=== PATIENT | male | born 1955 | race Caucasian/White ===

== ENCOUNTER 2018-03-26 07:39 | Outpatient (CLI) | payer MEDICARE ==
--- NOTE | 2018-03-26 10:01 | CT ---
CT PULMONARY LUNG SCAN: INDICATIONS: COPD. Smoker for 50+ years, quit one year ago. History of stroke. COMPARISON: CTA chest dated 02/05/2011. FINDINGS: There is a subpleural, sub-4 mm pulmonary nodule within the left upper lobe, adjacent to the left angela or fissure, which is stable. There is a small, sub-4 mm pulmonary nodule in the right upper lobe, on image 37 of series 2, which is stable. There are calcified granuloma in the right lower lobe, which is stable. There is scattered emphysema. There are coronary artery and thoracic aortic calcificati ons. The visualized upper abdomen reveals no definite acute abnormality. IMPRESSION: 1. Lung-RADS category 2-Benign. Recommend low dose lung cancer screening CT in one year. 2. Moderate emphysema. 3. Findings of prior granulomatous disease. The pulmonary nodules within both upper lobes have been stable since 2010 and are benign. 4. Coronary artery and thoracic aortic calcifications. 5. Moderate multilevel thoracic spondylosis. POS: [facility]
--- NOTE | 2018-03-26 10:23 | ULT ---
ABDOMINAL AORTA ULTRASOUND: HISTORY: Screening for abdominal aortic aneurysm. FINDINGS: The abdominal aorta measures 1.7 cm in maximum AP dimension. The common iliac arteries are of normal caliber as well. IMPRESSION: No evidence of abdominal aortic aneurysm. POS: [facility]
== END 2018-03-26 07:40 | disposition home or self-care (01) ==
LOC: ULT 07:39
PROVIDERS: ATTEND Family Medicine
DX: Z87.891 Personal history of nicotine dependence (principal); Z13.6 Encounter for screening for cardiovascular disorders; J43.9 Emphysema, unspecified; I25.10 Atherosclerotic heart disease of native coronary artery without angina pectoris; I70.0 Atherosclerosis of aorta; M47.814 Spondylosis without myelopathy or radiculopathy, thoracic region; R91.8 Other nonspecific abnormal finding of lung field; J84.10 Pulmonary fibrosis, unspecified
CPT/HCPCS: 76775; G0297

== ENCOUNTER 2018-04-22 07:47 | Outpatient (CLI) | payer MEDICARE ==
--- NOTE | 2018-04-22 09:47 | ULT ---
HEPATIC DOPPLER ULTRASOUND: DATE: 04/22/2018. COMPARISON: None. HISTORY: Hepatitis C. TECHNIQUE: Multiplanar, rodgers scale sonographic imaging of the upper abdomen obtained. The hepatic and splenic v asculature is assessed with color flow and spectral analysis. FINDINGS: The imaged pancreas appears grossly unremarkable. Inferior vena cava is patent and demonstrates a normal venous waveform. There is a vague hyperechoic lesion within the right lobe of the liver measuring 1.5 x 1.2 x 1.0 cm. Main portal vein is patent and demonstrates hepatopetal flow as does the right and left portal vein. Hepatic artery, middle hepatic vein, right hepatic vein, and left hepatic vein and demonstrate appro priate waveforms. No gallbladder wall thickening or pericholecystic fluid. No gallstones are noted. Common bile duct could not be visualized on this examination. The spleen measures 9.5 cm in greatest dimension, within normal limits. No free fluid seen in the up per abdomen. Splenic artery and vein are patent and demonstrate appropriate arterial and venous wave forms respectively. IMPRESSION: 1. Hyperechoic lesion within the right lobe of the liver, nonspecific. Further assessment via CT or MRI with and without contrast using hepatic mass protocol advised. 2. Patent hepatic and splenic vasculature. CODE T POS: [facility]
== END 2018-04-22 07:48 | disposition home or self-care (01) ==
LOC: BICULT 07:47
PROVIDERS: ATTEND Internal Medicine Gastroenterology
DX: B18.2 Chronic viral hepatitis C (principal); K52.9 Noninfective gastroenteritis and colitis, unspecified; K76.89 Other specified diseases of liver
CPT/HCPCS: 76705

== ENCOUNTER 2018-05-08 08:15 | Outpatient (CLI) | payer MEDICARE ==
--- NOTE | 2018-05-08 11:45 | CT ---
CT ABDOMEN NONCONTRAST CT ARTERIOGRAM AND PORTAL VEIN PHASE ABDOMEN WITH 3D VOLUME RENDERING: Date: 05/08/18 INDICATION: Hepatic lesion, follow-up. Reference is made to ultrasound exam dated 04/22/18. FINDINGS: There is a small hypodensity, only visualized on the portal vein phase, which involves posterior segm ent right hepatic lobe. Finding measures 11-12 mm in diameter and there is subtle hyperdense nodulari ty at the periphery which could relate to peripheral discontinuous nodular enhancement as can be seen with a cavernous hemangioma, although the finding is too small to definitively characterize. There i s prominent nodularity of the morphology of each kidney with areas of volume loss and absent enhancem ent suggestive of multiple areas of renal parenchymal scar, likely chronic. Multiple calcifications o f each kidney are vascular in distribution. There is no hydronephrosis. Adrenal glands are unremarkab le. No splenic mass or peripancreatic inflammation. Bowel is incompletely assessed without the presen ce of enteric contrast. The imaged lung bases reveal mild volume loss and/or scarring. There is coron al artery calcification and diffuse vascular disease present. Diffuse osseous degenerative change is present. IMPRESSION: Small, hypoattenuating focus, with the possibility of a faint degree of peripheral nodular discontinu ous enhancement, which may therefore relate to a small cavernous hemangioma involving posterior segme nt right hepatic lobe. As the finding is too small to definitively characterize, as a conservative me asure, 3-4 month follow-up CT exam is recommended to confirm size stability. POS: [facility]
== END 2018-05-08 08:16 | disposition home or self-care (01) ==
LOC: CT 08:15
PROVIDERS: ATTEND Internal Medicine Gastroenterology
DX: R93.2 Abnormal findings on diagnostic imaging of liver and biliary tract (principal)
CPT/HCPCS: 74175; 82565

== ENCOUNTER 2018-08-13 19:30 | Outpatient (CLI) | payer MEDICARE | END 2018-08-13 19:31 | disposition home or self-care (01) | LOC: SLEEPLAB 19:30 | PROVIDERS: ATTEND Family Medicine | DX: R06.89 Other abnormalities of breathing (principal); G47.00 Insomnia, unspecified; R35.1 Nocturia; J44.9 Chronic obstructive pulmonary disease, unspecified; I10 Essential (primary) hypertension; I63.9 Cerebral infarction, unspecified; G47.33 Obstructive sleep apnea (adult) (pediatric); G47.31 Primary central sleep apnea | CPT/HCPCS: 95810 ==

== ENCOUNTER 2018-09-03 07:28 | Outpatient (CLI) | payer MEDICARE ==
--- NOTE | 2018-09-03 09:59 | CT ---
CT ABDOMEN WITH AND WITHOUT IV CONTRAST: HISTORY: Hepatis C, constipation, abnormal liver imaging. FINDINGS: Comparison is made with the exam of 05/08/2018. Correlation is made with hepatic ultrasound of 04/22. The 12 mm hypodensity in the right posterior segment of the right lobe of the liver is best seen on t he portal venous phase and is not visualized on the delayed images. This is stable in size and imagi ng characteristics and likely represents a hemangioma. No other liver masses or abnormal biliary saul patt dilatation are identified. The spleen, pancreas, and adrenal glands are normal. Scarring in the kidneys is again seen. No calcified gallstones are identified. No free air, free fluid, or lymphad enopathy is seen. There are vascular calcifications without evidence of aneurysmal dilatation of the abdominal aorta. There are degenerative changes in the spine. The lung bases are clear. IMPRESSION: Stable right liver lobe lesion, likely hemangioma. Confirmation with Tc99m labeled RBC scan would be helpful. POS: [facility]
[2018-09-03] MEDS ORDERED: ISOVUE-370 76%-LOCM 1 ML ONE (10:25)
== END 2018-09-03 07:29 | disposition home or self-care (01) ==
LOC: BICCT 07:28
PROVIDERS: ATTEND Physician Assistant Medical
DX: B18.2 Chronic viral hepatitis C (principal); K59.00 Constipation, unspecified; R93.2 Abnormal findings on diagnostic imaging of liver and biliary tract; K76.9 Liver disease, unspecified
CPT/HCPCS: 74170; 82565

== ENCOUNTER 2020-02-15 16:09 | Inpatient (IN) | payer OTHER, MEDICARE ==
[~2020-02-15 16:09] MED LIST: Iopamidol 370 76% 100 ML VIAL ONE
[2020-02-15 17:02] LABS: #Eosinphils 0.1 thou/uL (0.0-0.7); #Lymphocytes 1.7 thou/uL (1.20-3.40); #Monocytes 0.6 thou/uL (0.11-0.59); %Basophils 0.7 % (0.0-1.0); %Eosinophils 1.5 % (0.0-10.0); %Lymphocytes 26.3 % (21.0-51.0); %Monocytes 9.3 % (0.0-10.0); %Neutrophils 62.2 % (42.0-75.0); Hemoglobin 14.1 g/dL (14.0-18.0); Mean Corpuscular HGB CONC 35.2 g/dL (32.0-36.0); Mean Corpuscular Hemoglobin 35.2 pg (27.0-31.0); Mean Platelet Volume 7.2 fL (7.4-10.4); Platelet Count 240 thou/uL (130-400); RBC Distribution Width 11.8 % (11.5-14.5); Red Blood Cell (RBC) Count 3.99 mill/uL (4.70-6.10); White Blood Cell (WBC) Count 6.4 thou/uL (4.8-10.8)
--- NOTE | 2020-02-15 17:14 | RAD ---
PORTABLE CHEST: Indications: Syncope Comparison: Two view chest, 06-05-2019 FINDINGS: Lung appear clear. There is stranding in the left lung base which was present on the prior exam. No i nfiltrate or vascular congestion. Heart and mediastinum unremarkable. IMPRESSION: No acute process identified. Stranding in the left lung base was present on the prior exam of 06-05-19 and is poorly evaluated on this portable projection. POS: [facility]
[2020-02-15 17:21] LABS: Anion Gap 18 mmol/L (10-20); BUN (Urea Nitrogen) 8 mg/dL (8.4-25.7); Calc. Creatinine Clearance 0 mL/min (70-130); Carbon Dioxide 18 mmol/L (23-31); Chloride 101 mmol/L (98-107); Estimated GFR-MDRD 79; Potassium 4.5 mmol/L (3.5-5.1); Sodium 132 mmol/L (136-145)
[2020-02-15 17:22] LABS: ALT (SGPT) 12 U/L (8-55); AST (SGOT) 21 U/L (5-34); Albumin 3.8 g/dL (3.4-4.8); Alkaline Phosphatase 86 U/L (40-110); Bilirubin, Total 0.7 mg/dL (0.2-1.2); Calcium 8.2 mg/dL (7.8-10.44); Globulin 2.7 g/dL (2.4-3.5); Glucose 84 mg/dL (80-115); Protein, Total 6.5 g/dL (5.8-8.1)
--- NOTE | 2020-02-15 18:01 | CT ---
CT HEAD WITHOUT CONTRAST: Indications: Syncope. Comparison: 07-24-13 FINDINGS: Ventricles are upper normal in size but are stable from 2014. There is no evidence of intracranial ma ss or hemorrhage. No infarct. Paranasal sinuses are clear. IMPRESSION: 1. Borderline ventriculomegaly which is stable from the prior exam. No acute process or significant i nterval change. POS: [facility]
[2020-02-15 18:34] LABS: Bilirubin Negative (Negative); Blood, Urine Negative (Negative); Clarity Clear (Clear); Glucose, Urine (Dipstick) Normal (Negative); Ketone, Urine Negative (Negative); Leukocyte Negative Leu/uL (Negative); Nitrite Negative (Negative); Protein, Urine (Dipstick) Negative (Neg-Trace); Specific Gravity, Urine 1.004 (1.002-1.036); Urobilinogen Normal mg/dL (Less than 2); pH, Urine 5.5 (5.0-9.0)
--- NOTE | 2020-02-15 20:28 | CT ---
CT ANGIO CHEST PERFORMED WITH INTRAVEOUS CONTRAST ENHANCEMENT WITH 3D RECONSTRUCTIONS: History: Syncope, increasing shortness of breath FINDINGS: There are changes of central lobular emphysema. No focal infiltrative process is seen. There is some parenchymal change in the region of the lingula which may be related to scarring. No significant mediastinal, hilar or axillary adenopathy. The thoracic aorta is normal in caliber. There is good pulmonary artery opacification, no CT evidence for pulmonary embolus. Visualized liver parenchyma shows no focal findings. Right and left adrenal glands are normal. IMPRESSION: No CT evidence for pulmonary embolus. POS: [facility]
--- NOTE | 2020-02-15 20:30 | PDOC.FPRHP ---
- History of Present Illness Chief Complaint: syncope History of Present Illness: Pt is a 65yo M with a PMH of HTN, COPD, stroke x2, Hep C presents with chief complaint of syncope. Pt states 4 months ago he would "black out everyday", but he went to his PCP and they changed some medications which seemed to help. However, he has passed out 1x daily in the last 2 days with the most recent episode being earlier today. He states today he was getting up from his chair, went to the kitchen and before he could get to what he was going to do he blacked out. He states he thinks he hits hit head on the counter, but does not know how long he was down. He said before he passed out, he felt really shaky in his legs and felt very dizzy. With past episodes, he states it seems to just be associated with standing; with prolonged standing he gets shake, dizzy, and passes out. He denies associated CP, SOB, N/V, edema, fever, chills, current drug use, recent travel or sick contacts. His previous strokes were 3 and 5 years ago, respectively and he had right sided deficits that required him to learn to walk again, but denies any long lasting deficits from these strokes. ED Course: elevated Ddimer, f/u CTA neg CXR, UA, EKG, troponin, CT head neg - Allergies/Adverse Reactions Allergies Allergy/AdvReac Type Severity Reaction Status Date / Time No Known Drug Allergies Allergy Unverified 02/15/20 21:21 - Home Medications Medication Instructions Recorded Confirmed Type Amlodipine [Norvasc] 5 mg PO DAILY 02/15/20 02/15/20 History Atorvastatin Calcium [Lipitor] 40 mg PO DAILY 02/15/20 02/15/20 History Budesonide/Formoterol Fumarate 1 puff IH BID 02/15/20 02/15/20 History [Budesonide-Formoterol 160-4.5] Gabapentin 300 mg PO TID 02/15/20 02/15/20 History Ibuprofen [Motrin] 800 mg PO TID 02/15/20 02/15/20 History Melatonin 10 mg PO HS PRN 02/15/20 02/15/20 History Tamsulosin HCl [Flomax] 2 capsule PO DAILY 02/15/20 02/15/20 History traZODone HCl [Trazodone HCl] 50 mg PO HS PRN 02/15/20 02/15/20 History - History PMHx: COPD, HTN, Hep C, neuropathy, 2x stroke last in 2017 PSHx: b/l elbow surgery FHx: mom-parkinsons dad- brain aneurysm Social: past drug user IV and snort cocaine, last use 10 years ago daily alcohol use, 4 beers/day past smoker, 2ppd for 50 years, quit in 2017 - Review of Systems General: denies: fever/chills, weight/appetite/sleep changes Eyes: denies: vision changes Respiratory: reports: shortness of breath (pt has hx of COPD). denies: cough Cardiovascular: denies: chest pain, palpitation, edema Gastrointestinal: denies: nausea, vomiting, diarrhea, abdominal pain Genitourinary: denies: dysuria Skin: denies: rashes Neurological: reports: numbness (hx of b/l glove pattern neuropathy), syncope. denies: seizure - Vital signs BP: 140/91 HR: 72 RR: 20 Tmax: 98.5 Pox: 94% on RA Wt: 72.6kg - Physical Exam Constitutional: NAD, awake, alert and oriented HEENT: normocephalic and atraumatic, PERRLA, EOMI, conjunctiva clear, grossly normal vision Neck: supple, trachea midline Chest: no-tender to palpation Heart: RRR, normal S1/S2 (distant heart sounds) Lungs: CTAB, no respiratory distress, good air movement Abdomen: soft, non-tender, bowel sounds present Musculoskeletal: normal structure, normal tone, ROM grossly normal Neurological: no focal deficit, CN II-XII intact -Neurological: b/l glove like pattern of neuropathy in UEs Skin: no rash/lesions, good turgor Psychiatric: normal mood and affect, good judgment and insight FMR H&P: Results - Labs Result Diagrams: 02/15/20 16:41 02/15/20 16:41 Lab results: WBC 6.4 thou/uL (4.8-10.8) 02/15/20 16:41 Hgb 14.1 g/dL (14.0-18.0) 02/15/20 16:41 Hct 40.0 % (42.0-52.0) L 02/15/20 16:41 MCV 100.0 fL (78.0-98.0) H 02/15/20 16:41 Plt Count 240 thou/uL (130-400) 02/15/20 16:41 Neutrophils % 62.2 % (42.0-75.0) 02/15/20 16:41 Sodium 132 mmol/L (136-145) L 02/15/20 16:41 Potassium 4.5 mmol/L (3.5-5.1) 02/15/20 16:41 Chloride 101 mmol/L (98-107) 02/15/20 16:41 Carbon Dioxide 18 mmol/L (23-31) L 02/15/20 16:41 BUN 8 mg/dL (8.4-25.7) L 02/15/20 16:41 Creatinine 0.95 mg/dL (0.7-1.3) 02/15/20 16:41 Glucose 84 mg/dL (80-115) 02/15/20 16:41 Calcium 8.2 mg/dL (7.8-10.44) 02/15/20 16:41 Total Bilirubin 0.7 mg/dL (0.2-1.2) 02/15/20 16:41 AST 21 U/L (5-34) 02/15/20 16:41 ALT 12 U/L (8-55) 02/15/20 16:41 Alkaline Phosphatase 86 U/L (40-110) 02/15/20 16:41 Serum Total Protein 6.5 g/dL (5.8-8.1) 02/15/20 16:41 Albumin 3.8 g/dL (3.4-4.8) 02/15/20 16:41 Urine Ketones Negative mg/dL (Negative) 02/15/20 18:14 Urine Blood Negative (Negative) 02/15/20 18:14 Urine Nitrite Negative (Negative) 02/15/20 18:14 Ur Leukocyte Esterase Negative Hemanth/uL (Negative) 02/15/20 18:14 - EKG Interpretation EKG: normal sinus rhythm, no evidence of ischemia FMR H&P: A/P - Plan 1. Syncope -past hx of stroke x2, last in 2017 -CXR, UA, EKG, troponin, CT head all negative in ED -follow up echo, MRI, orthostatic vitals -consider CTA neck -PT/OT/rehab assessment ordered 2. COPD -aware, continue home meds -PRN DuoNebs -O2 sats >90% 3. HTN -aware, continue home meds -hold Propanolol 4.Hep C -aware, treated in the past 5.Neuropathy -aware, continue home meds 6. Elevated D dimer -CTA negative 7. Hyponatremia -likely 2/2 history of daily alcohol use -MCV 100 -follow up folate and B12, urine studies 8. BPH -aware, hold Tamsulosin 9. History of alcohol use -elevated MPV, daily alcohol use -ASE protocol intitiated DISPO: admit to tele obs, anticipated LOS <48 hours Code: FULL Fluids: KVO Diet: HH DVT ppx: Lovenox FMR H&P: Upper Level - Plan Date/Time: 02/15/202029 IDonnie DO, have evaluated this patient and agree with findings/plan as outlined by phd internship resident. Pertinent changes/additions are listed here. 65 yo m w/ pmhx sig for severe COPD, posterior CVA, and alcohol use He reports that he has had dysequilibrium since his cva 2 years ago. He reports that additionally he has had episodes of what he describes as shaky legs and then falling to the ground with LOC. He denies any CP, dyspnea, or palpitations preceding these episodes. He reports they have been happening daily for the past 3 days. The were also bad 4mos ago before his pcp changed his meds, after which they improved. He reports consuming 4 beers a day. PE significant for mild motor agitation, horizontal nystagmus of R eye which he reports is residual from stroke, and significant skin pock prado diffusely present. his strength and sensation are normal. VSS, EKG wnl in ED. labs sig for hyponatremia, macrocytosis, and elevated DDimer, CTA chest wnl. CXR neg for acute abnormality. Primary concern would be syncope 2/2 cva vs cardiac vs orthostasis for which we have MRI, orthostatics, echo pending. Tele monitoring. consider CTA neck in AM. Additionally we suspect alcohol abuse which could be contributing to symptomatology and lab findings, further workup pending, ASE protocol initiated. Medications could be contributing as well, hold BB and tamsulosin. He has severe COPD which will require cont. O2 monitoring, duonebs prn. Regardless of etiology pt could benefit from strengthening at snf vs rehab. Admit to stroke obs for ELOS<48hrs. Addendum - Attending - Attending Attestation Date/Time: 02/16/20 005 I personally evaluated the patient and discussed the management with Dr. Lopez. I agree with the History, Examination, Assessment and Plan documented above with any addition or exceptions noted below. Etiology of syncope is unclear. Because it is unwitnessed, and occurring multiple times which is unusual. Neuro, cardiac, and iatrogenic causes to be considered,mabel with alcohol and drug etiology.
[2020-02-15] MEDS ORDERED: Albuterol 200 PUFF (6.7GM INHALER) ONE (20:56)
[2020-02-15] MEDS ORDERED: Guaifenesin DM 100-10/5 ML UDCUP PO PRN (21:14)
[2020-02-15] MEDS ORDERED: Acetaminophen 325 MG TAB PO PRN (21:14)
[2020-02-15] MEDS ORDERED: Ondansetron ODT 4 MG TAB PO PRN (21:14)
[2020-02-15] MEDS ORDERED: Ondansetron PF 4 MG/2 ML Vial IVP PRN (21:14)
[2020-02-15 21:22] LABS: Troponin I Less than 0.010 ng/mL (< 0.028)
[2020-02-15 22:36] VITALS: BMI 23.7
[2020-02-15] MEDS ORDERED: Lactated Ringer's 1,000 ML IV SCH (23:00)
[2020-02-15 23:41] LABS: Troponin I Less than 0.010 ng/mL (< 0.028)
[2020-02-15] MEDS ORDERED: traZODone HCl 50 MG TAB PO PRN (23:42)
[2020-02-15] MEDS ORDERED: Fluticasone Propionate Nasal Spray 16 gm Bottle NASAL SCH (23:59)
[2020-02-16] MEDS: Melatonin 3 MG TAB PO PRN ×2 (00:16→21:34)
[2020-02-16] MEDS ORDERED: guaiFENesin ER 600 MG TAB PO SCH (03:30)
[2020-02-16 05:06] LABS: #Basophils 0.1 thou/uL (0.0-0.2); #Eosinphils 0.1 thou/uL (0.0-0.7); #Lymphocytes 1.6 thou/uL (1.20-3.40); #Monocytes 0.7 thou/uL (0.11-0.59); #Neutrophils 4.5 thou/uL (1.40-6.50); %Lymphocytes 23.3 % (21.0-51.0); %Monocytes 9.8 % (0.0-10.0); %Neutrophils 63.9 % (42.0-75.0); Hemoglobin 14.3 g/dL (14.0-18.0); Mean Corpuscular HGB CONC 34.2 g/dL (32.0-36.0); Mean Corpuscular Hemoglobin 34.2 pg (27.0-31.0); Mean Platelet Volume 6.9 fL (7.4-10.4); Platelet Count 231 thou/uL (130-400); Red Blood Cell (RBC) Count 4.18 mill/uL (4.70-6.10)
[2020-02-16 05:30] LABS: ALT (SGPT) 11 U/L (8-55); AST (SGOT) 14 U/L (5-34); Albumin 3.7 g/dL (3.4-4.8); Alkaline Phosphatase 85 U/L (40-110); Anion Gap 11 mmol/L (10-20); BUN (Urea Nitrogen) 7 mg/dL (8.4-25.7); Bilirubin, Total 0.7 mg/dL (0.2-1.2); Calc. Creatinine Clearance 89 mL/min (70-130); Calcium 8.6 mg/dL (7.8-10.44); Carbon Dioxide 22 mmol/L (23-31); Cardiac Risk 2.5 (Less than 4.5); Chloride 106 mmol/L (98-107); Cholesterol 113 mg/dl (< 200 Desired); Estimated GFR-MDRD Greater than 90; Globulin 2.4 g/dL (2.4-3.5); Glucose 87 mg/dL (80-115); HDL Cholesterol 45 mg/dL (>60 Neg Risk); LDL Cholesterol, Calculated 53 mg/dL; Potassium 3.8 mmol/L (3.5-5.1); Protein, Total 6.1 g/dL (5.8-8.1); Sodium 135 mmol/L (136-145); Triglycerides 74 mg/dL (Less than 150)
--- NOTE | 2020-02-16 05:56 | PDOC.FM ---
- Subjective Subjective: No acute overnight events. Reports he is dizzy and has been dizzy for 3 years. He is also tremulous but states this is his baseline level of tremor. No abd pain, n/v, diarrhea, constipation. - Objective Vital Signs & Weight: Vital Signs (12 hours) Temp Pulse Resp BP BP BP BP 02/16/20 04:03 97.4 F L 72 18 129/73 02/16/20 04:00 97.4 F L 72 18 129/73 02/15/20 23:48 97.4 F L 71 16 138/80 02/15/20 23:18 97.3 F L 71 18 156/83 H 02/15/20 22:32 139/82 116/75 02/15/20 21:38 97.3 F L 71 18 156/83 H BP Pulse Ox 02/16/20 04:03 93 L 02/16/20 04:00 93 L 02/15/20 23:48 93 L 02/15/20 23:18 96 02/15/20 22:32 148/88 H 02/15/20 21:38 96 Weight Weight 70.874 kg Result Diagrams: 02/16/20 04:42 02/16/20 04:42 Phys Exam - Physical Examination Constitutional: NAD HEENT: moist MMs upper dentures in place Respiratory: clear to auscultation bilateral Cardiovascular: RRR distant heart sounds Gastrointestinal: soft, positive bowel sounds mild RUQ tenderness Musculoskeletal: no edema Neurological: non-focal, moves all 4 limbs bilateral hand tremors Psychiatric: normal affect, A&O x 3 Skin: no rash Deviation from normal: diffuse pock prado Dx/Plan - Plan Plan: 1. Syncope -past hx of stroke x2, last in 2017 -CXR, UA, EKG, troponin, CT head all negative in ED -follow up echo, MRI, orthostatic vitals -consider CTA neck -PT/OT/rehab assessment ordered -positive orthostatics on admission, repeat s/p fluid resuscitation 2. COPD -aware, continue home meds -PRN DuoNebs -O2 sats >90% 3. HTN -aware, continue home meds -hold Propanolol 4.Hep C -aware, treated in the past 5.Neuropathy -aware, continue home meds 6. Elevated D dimer -CTA negative 7. Hyponatremia -likely 2/2 history of daily alcohol use -MCV 100 -follow up folate and B12, urine studies 8. BPH -aware, hold Tamsulosin 9. History of alcohol use -elevated MPV, daily alcohol use -ASE protocol intitiated DISPO: admit to tele obs, anticipated LOS <48 hours Code: FULL Fluids: KVO Diet: HH DVT ppx: Lovenox Addendum - Attending - Attending Attestation Date/Time: 02/16/20 1100 I personally evaluated the patient and discussed the management with Dr. Mcnair. I agree with the History, Examination, Assessment and Plan documented above with any addition or exceptions noted below.
--- NOTE | 2020-02-16 08:54 | MRI ---
MRI BRAIN WITHOUT CONTRAST: HISTORY: TIA CORRELATION: CT scan from 02/15/2020, 07/24/2013. FINDINGS: No restricted diffusion is seen. There are foci of T2 prolongation in the periventricular white matte r, consistent with chronic small vessel ischemic disease. The ventricular size is prominent but stable since CT scan of 07/24/2013. The basilar cisterns are patent. There are changes of cortical atr ophy. No evidence of acute infarct, hemorrhage, midline shift or abnormal extra-axial fluid collections is seen. There is mild mucosal disease in the paranasal sinuses. IMPRESSION: No evidence of acute intracranial process.
[2020-02-16] MEDS ORDERED: FLU VACC QS2020-21(65YR UP)/PF 240 MCG/0.7 ML SYRINGE IM ONE (09:00)
[2020-02-16] MEDS: guaiFENesin ER 600 MG TAB PO SCH ×2 (09:01→21:35)
[2020-02-16] MEDS: Atorvastatin Calcium 40 MG TAB PO SCH (09:01)
[2020-02-16] MEDS: Amlodipine 5 MG TAB PO SCH (09:01)
[2020-02-16] MEDS: Enoxaparin Sodium 40 MG/0.4 ML SYRINGE SC SCH (09:10)
[2020-02-16] MEDS: Fluticasone Propionate Nasal Spray 16 gm Bottle NASAL SCH (09:11)
[2020-02-16] MEDS: Folic Acid 1 MG TAB PO SCH (09:11)
[2020-02-16] MEDS: Ibuprofen 800 MG TAB PO SCH ×3 (09:12→21:35)
[2020-02-16] MEDS: Gabapentin 300 MG CAP PO SCH ×2 (09:12→17:05)
[2020-02-16] MEDS ORDERED: Lactated Ringer's 1,000 ML IV SCH (11:00)
[2020-02-16 14:02] LABS: SARS-CoV-2 MS2 Positive; SARS-CoV-2 N Gene Negative; SARS-CoV-2 S Gene Negative; SARS-CoV-2 by NAA Not Detected (NotDetected); SARS-CoV-2 orf1ab Negative
[2020-02-16] MEDS ORDERED: Meclizine HCl 25 MG TAB PO SCH (15:30)
[2020-02-16] MEDS: Mometasone 200 MCG/Formoterol 5 MCG 120 PUFF INHALER INH SCH (18:25)
[2020-02-16] MEDS ORDERED: Non-Formulary Item 1 EACH (Budesonide-Formoterol [Symbicort 160-4.5] 160 MG/4.5 MG Aer) INH SCH (21:00)
--- NOTE | 2020-02-17 06:01 | PDOC.FM ---
- Subjective Subjective: No acute overnight event. Given meclizine yesterday afternoon, reports it improved his symptoms. Reports he slept well overnight, no new complaints this morning. He is "not awake enough yet" to know if he is dizzy today although he denies dizziness during his exam this AM. He denies chest pain, SOB, abd pain. Reports he is on gabapentin for bilateral UE neuropathy from the elbows through the hands. Had eval with nerve studies at onset of symptoms, etiology unknown per patient. Hx of - Objective Vital Signs & Weight: Vital Signs (12 hours) Temp Pulse Resp BP Pulse Ox 02/17/20 04:30 98.3 F 66 19 109/68 92 L 02/17/20 00:50 97.9 F 68 17 100/63 93 L 02/16/20 20:19 97.3 F L 80 19 114/79 96 02/16/20 18:25 12 Weight Admit Weight 70.874 kg Weight 70.874 kg I&O: 02/15/20 02/16/20 02/17/20 06:59 06:59 06:59 Intake Total 1180 1240 Output Total 1999 1400 Balance -820 -160 Result Diagrams: 02/16/20 04:42 02/16/20 04:42 Phys Exam - Physical Examination Constitutional: NAD HEENT: moist MMs, sclera anicteric Respiratory: clear to auscultation bilateral Cardiovascular: RRR, no significant murmur distant heart sounds Gastrointestinal: soft, non-tender, no distention, positive bowel sounds Musculoskeletal: no edema, pulses present Neurological: non-focal, moves all 4 limbs Psychiatric: normal affect, A&O x 3 Skin: no rash Deviation from normal: diffuse pock markings on extermities Dx/Plan - Plan Plan: Syncope -past hx of stroke x2, last in 2017 -CXR, UA, EKG, troponin, CT head all negative in ED -echo, MRI negative -intial orthostatic vitals positive, negative after fluid resuscitation -PT/OT/rehab assessment ordered -Suspect symptoms likely due to a combination of reflex mediated syncope, orthostatic hypotension, and BPPV. BPPV Positive amandeep-hallpike exam yesterday afternoon. Some improvement with 25 mg meclizine. - continue meclizine PRN COPD -aware, continue home meds -PRN DuoNebs -O2 sats >90% HTN -aware, continue home meds -hold Propanolol Hep C -aware, treated in the past Neuropathy -holding gabapentin in setting of increased dizziness Elevated D dimer -CTA negative Hyponatremia, improving -likely 2/2 history of daily alcohol use BPH -aware, hold Tamsulosin History of alcohol use -elevated MCV, daily alcohol use -ASE protocol intitiated DISPO: likely discharge to home later today Code: FULL Fluids: KVO Diet: HH DVT ppx: Lovenox Addendum - Attending - Attending Attestation Date/Time: 02/17/20 0279 I personally evaluated the patient and discussed the management with Dr. Mcnair. I agree with the History, Examination, Assessment and Plan documented above with any addition or exceptions noted below. Patient feels well. Suspect Orthostasis and BPPV as his cause of vertigo. Improved with meclizine. Stable for discharge.
[2020-02-17] MEDS: Mometasone 200 MCG/Formoterol 5 MCG 120 PUFF INHALER INH SCH (06:32)
[2020-02-17] MEDS: guaiFENesin ER 600 MG TAB PO SCH (10:19)
[2020-02-17] MEDS: Amlodipine 5 MG TAB PO SCH (10:19)
[2020-02-17] MEDS: Ibuprofen 800 MG TAB PO SCH ×2 (10:19→15:20)
[2020-02-17] MEDS: Atorvastatin Calcium 40 MG TAB PO SCH (10:19)
[2020-02-17] MEDS: Enoxaparin Sodium 40 MG/0.4 ML SYRINGE SC SCH (10:20)
[2020-02-17] MEDS: Folic Acid 1 MG TAB PO SCH (10:20)
[2020-02-17] MEDS: Fluticasone Propionate Nasal Spray 16 gm Bottle NASAL SCH (10:21)
[2020-02-17 11:43] VITALS: TEMP 98.1
[2020-02-17 12:28] VITALS: BP 137/88
--- NOTE | 2020-02-18 13:59 | DIS ---
DATE OF ADMISSION: 02/17/2020 DATE OF DISCHARGE: 02/17/2020 RESIDENT: Lucero Mcnair DO ADMITTING ATTENDING: Dr. Oconnell. DISCHARGE ATTENDING: Dr. Julio. CONSULTS: None. PROCEDURES: chest and thorax, MRI of brain, echocardiogram. PRIMARY DIAGNOSIS: Orthostatic hypotension. SECONDARY DIAGNOSES: Benign positional vertigo, chronic obstructive pulmonary disease, hypertension, hepatitis C status post treatment, neuropathy, hyponatremia, improved. History of alcohol use, history of strokes. DISCHARGE MEDICATIONS: 1. Melatonin 10 mg p.o. at bedtime p.r.n. 2. Ibuprofen 800 mg p.o. t.i.d. p.r.n. 3. Tamsulosin 0.4 mg p.o. daily. 4. Atorvastatin 40 mg p.o. daily. 5. Amlodipine 5 mg p.o. daily. 6. Symbicort 160/4.5 one puff b.i.d. DISCONTINUED MEDICATIONS: 1. Trazodone 50 mg p.o. at bedtime p.r.n. 2. Gabapentin 300 mg p.o. t.i.d. HISTORY OF PRESENT ILLNESS AND HOSPITAL COURSE: Mr. Clark is a 65-year-old male with a past medical history of hypertension, COPD, and 2 strokes in the past, who presented with a chief complaint of syncope. On admission, he reported that several months ago he was having episodes of blacking out every day but his PCP switched his home medications, which seemed to help. His current episode is described as getting up from his chair, going to his kitchen and then lowering himself to the floor as he felt he was going to pass out. He did feel shaky and dizzy before this syncopal episode. He is also reporting a history of being generally dizzy for the past three years. He denies any associated chest pain, shortness of breath, nausea, vomiting, edema, fever, chills, current drug use, recent travel, or sick contacts. He previously had right-sided deficits due to one of his strokes, which has improved after therapy. Denies any long-lasting stroke deficits. He was admitted for workup of his syncope including ruling out a stroke. He had multiple imaging studies done, all of which were negative for any acute process. He also had an echocardiogram, which revealed an ejection fraction of 55% to 60% and was otherwise normal. He was monitored on telemetry throughout his admission and no events were noted on telemetry that would be suspicious for triggering syncope. On second day of admission, a Marlin-Hallpike exam was performed, which was positive. Meclizine was given, which improved his symptoms overnight. We also held his trazodone and gabapentin, which seemed to improve his dizziness. On admission, orthostatic vital signs were performed, which were positive and improved after . The patient reports a history of drinking only Pepsi and beer at home. It is presumed that his symptoms are due to a combination of both orthostatic hypotension and benign positional vertigo. After treatment of both of these conditions, he was discharged to home in stable condition. He already has home health set up at home and declined going to a retirement or rehab facility to work on his physical conditioning. DISPOSITION: Stable. DISCHARGE INSTRUCTIONS: 1. Location: Home. 2. Diet: Heart healthy diet. 3. Activity: As tolerated. 4. Followup: Follow up with PCP, Dr. José at [facility] within the next one week. Job ID: [id number]
== END 2020-02-17 14:53 | disposition home or self-care (01) | DRG 312 ==
LOC: ERS 16:09 → 2SE 22:05 → OBSVTOIN 02-17 14:00
PROVIDERS: ADMIT Family Medicine; ATTEND Family Medicine
DX: I95.1 Orthostatic hypotension (principal); E87.1 Hypo-osmolality and hyponatremia; H81.10 Benign paroxysmal vertigo, unspecified ear; J44.9 Chronic obstructive pulmonary disease, unspecified; F41.9 Anxiety disorder, unspecified; I10 Essential (primary) hypertension; G62.9 Polyneuropathy, unspecified; B19.20 Unspecified viral hepatitis C without hepatic coma; N40.0 Benign prostatic hyperplasia without lower urinary tract symptoms; D75.89 Other specified diseases of blood and blood-forming organs; F10.10 Alcohol abuse, uncomplicated; Z79.899 Other long term (current) drug therapy; Z86.73 Personal history of transient ischemic attack (TIA), and cerebral infarction without residual deficits; Z20.828 Contact with and (suspected) exposure to other viral communicable diseases
CPT/HCPCS: 36415; 70450; 70551; 71045; 71275; 80053; 80061; 81003; 82607; 82746; 83935; 84300; 84484; 85025; 85379; 87635; 90471; 90662; 90732; 93005; 93306; 94664; 96360; 96361; 96372; G0008; G0009; G0378; J1650; Q9967; U0003

== ENCOUNTER 2020-11-12 09:04 | Outpatient (CLI) | payer MEDICARE ==
[2020-11-12 10:22] LABS: Hemoglobin 14.2 g/dL (13.5-17.5); Mean Corpuscular HGB CONC 33.8 g/dL (32.0-36.0); Mean Corpuscular Hemoglobin 33.1 pg (27.0-33.0); Mean Corpuscular Volume 97.9 fl (81.2-95.1); Mean Platelet Volume 9.9 fl (7.4-10.4); Platelet Count 256 10x3/uL (150-450); RBC Distribution Width 12.9 % (11.5-14.5); Red Blood Cell (RBC) Count 4.29 10x6/uL (4.32-5.72); White Blood Cell (WBC) Count 6.2 10x3/uL (3.5-10.5)
[2020-11-12 10:35] LABS: INR-International Normal Ratio 0.9; PTT 27.3 sec (22.0-33.0); Prothrombin Time 10.4 sec (9.5-12.1)
[2020-11-12 10:49] LABS: Anion Gap 16 mmol/L (10-20); BUN (Urea Nitrogen) 9 mg/dL (8.4-25.7); Calc. Creatinine Clearance 0 mL/min (70-130); Calcium 9.3 mg/dL (7.8-10.44); Carbon Dioxide 22 mmol/L (23-31); Chloride 103 mmol/L (98-107); Glucose 134 mg/dL (80-115); Potassium 4.6 mmol/L (3.5-5.1); Sodium 136 mmol/L (136-145)
[2020-11-12 12:59] LABS: Bilirubin Neg (Negative); Blood, Urine Negative (Negative); Clarity Clear (Clear); Glucose, Urine (Dipstick) Normal (Negative); Ketone, Urine Negative (Negative); Leukocyte 25 (Negative); Nitrite Negative (Negative); Protein, Urine (Dipstick) Negative (Neg-Trace); Urobilinogen Normal mg/dL (Less than 2); pH, Urine 6.5 (5.0-9.0)
[2020-11-12 13:19] LABS: Bacteria/HPF None Seen HPF (None Seen); RBC/HPF 0-3 HPF (0-3); Squamous Epithelial None Seen HPF (0-3); WBC/HPF 0-3 HPF (0-3)
== END 2020-11-12 09:05 | disposition home or self-care (01) ==
LOC: LABBT 09:04
PROVIDERS: ATTEND Urology
DX: Z01.818 Encounter for other preprocedural examination (principal); Z12.5 Encounter for screening for malignant neoplasm of prostate; N40.1 Benign prostatic hyperplasia with lower urinary tract symptoms; I95.1 Orthostatic hypotension; R35.0 Frequency of micturition; B19.20 Unspecified viral hepatitis C without hepatic coma; E87.1 Hypo-osmolality and hyponatremia; F10.11 Alcohol abuse, in remission; H81.10 Benign paroxysmal vertigo, unspecified ear; F14.11 Cocaine abuse, in remission; F19.11 Other psychoactive substance abuse, in remission; R33.9 Retention of urine, unspecified; Z87.891 Personal history of nicotine dependence; Z86.73 Personal history of transient ischemic attack (TIA), and cerebral infarction without residual deficits
CPT/HCPCS: 80048; 81001; 85027; 85610; 85730; 87077; 87086; 93005; G0103; 87186; 93010

== ENCOUNTER 2021-09-14 13:22 | Outpatient (CLI) | payer MEDICARE | END 2021-09-14 13:23 | disposition home or self-care (01) | LOC: MRI 13:22 | PROVIDERS: ATTEND Family Medicine | DX: G60.3 Idiopathic progressive neuropathy (principal); I95.1 Orthostatic hypotension; G25.2 Other specified forms of tremor; N39.42 Incontinence without sensory awareness; M48.02 Spinal stenosis, cervical region; M50.30 Other cervical disc degeneration, unspecified cervical region; M47.812 Spondylosis without myelopathy or radiculopathy, cervical region; G95.89 Other specified diseases of spinal cord | CPT/HCPCS: 72141 ==

== ENCOUNTER 2021-10-12 10:00 | Inpatient (IN) | payer MEDICARE ==
[2021-10-17] MEDS ORDERED: fentaNYL Citrate/PF 100 MCG/2 ML SYRINGE ONE (07:05)
[2021-10-17] MEDS ORDERED: HYDROmorphone 0.5 MG/0.5 ML SYRINGE ONE (07:05)
[2021-10-17] MEDS ORDERED: CEFAZOLIN 2 GM VIAL ONE (07:26)
[2021-10-17] MEDS ORDERED: Sodium Chloride 0.9% 100 ML ONE (07:26)
[2021-10-17] MEDS ORDERED: Ondansetron PF 4 MG/2 ML Vial ONE (07:37)
[2021-10-17] MEDS ORDERED: Rocuronium Bromide 10 MG/ML (10ML VIAL) ONE (07:37)
[2021-10-17] MEDS ORDERED: Glycopyrrolate 0.2 MG/ML 5 ML SYRINGE ONE (07:37)
[2021-10-17] MEDS ORDERED: Lidocaine 1% PF 5 ML VIAL ONE (07:37)
[2021-10-17] MEDS ORDERED: Ketorolac Tromethamine 30 MG/ML VIAL ONE (07:37)
[2021-10-17] MEDS ORDERED: PROPOFOL 200 MG/20 ML VIAL ONE (07:37)
[2021-10-17] MEDS ORDERED: ePHEDrine 50 MG/ML VIAL ONE (07:37)
[2021-10-17] MEDS ORDERED: Dexamethasone 20 MG/5 ML VIAL ONE (07:37)
[2021-10-17] MEDS ORDERED: HYDROmorphone 2 MG/ML VIAL SLOW IVP PRN (09:06)
[2021-10-17] MEDS ORDERED: PACU-Morphine 4MG/ML VIAL SLOW IVP PRN (09:06)
[2021-10-17] MEDS ORDERED: Promethazine HCl 25 MG/ML VIAL IVPB PRN (09:06)
[2021-10-17] MEDS ORDERED: Promethazine HCl 25 MG/ML VIAL IM PRN ×2 (09:06→11:15)
[2021-10-17] MEDS ORDERED: Ondansetron HCl/PF 4 MG/2 ML Vial IVP PRN (09:06)
[2021-10-17] MEDS ORDERED: Fentanyl 100 MCG/2 ML VIAL ONE ×3 (09:09→09:44)
[2021-10-17 10:31] VITALS: BMI 22.4
[2021-10-17] MEDS ORDERED: Albuterol 200 PUFF (6.7GM INHALER) INH PRN (11:04)
[2021-10-17] MEDS ORDERED: Melatonin 3 MG TAB PO PRN (11:10)
[2021-10-17] MEDS ORDERED: hydrOXYzine Pamoate 25 mg Capsule PO PRN (11:11)
[2021-10-17] MEDS ORDERED: Promethazine HCl 12.5 MG SUPP PR PRN (11:15)
[2021-10-17] MEDS ORDERED: Ondansetron PF 4 MG/2 ML Vial IVP PRN ×2 (11:15→11:55)
[2021-10-17] MEDS ORDERED: traMADol HCl 50 MG TAB PO PRN ×2 (11:15)
[2021-10-17] MEDS ORDERED: diphenhydrAMINE 25 MG CAP PO PRN (11:15)
[2021-10-17] MEDS ORDERED: Promethazine 25 MG TAB PO PRN (11:15)
[2021-10-17] MEDS ORDERED: diphenhydrAMINE 50 MG/ML VIAL IVP PRN (11:15)
[2021-10-17] MEDS ORDERED: Mag-Al 1200 mg/1200 mg/30 ML UDCUP PO PRN (11:15)
[2021-10-17] MEDS ORDERED: Cyclobenzaprine 10 MG TAB PO PRN (11:15)
[2021-10-17] MEDS ORDERED: Acetaminophen/Codeine 30-300mg Tablet PO PRN (11:15)
[2021-10-17] MEDS ORDERED: Morphine 2 MG/ML VIAL SLOW IVP PRN (11:15)
[2021-10-17] MEDS ORDERED: Non-Formulary Item 1 EACH (Hydroxyzine Pamoate [Hydroxyzine Pamoate] 50 MG Capsule) PO PRN (11:49)
[2021-10-17] MEDS ORDERED: Non-Formulary Item 1 EACH (Melatonin [Melatonin] 10 MG Tablet) PO PRN (11:49)
[2021-10-17] MEDS ORDERED: Non-Formulary Item 1 EACH (Ventolin Hfa Inhaler [Ventolin Hfa Inhaler] 60 PUFF Aer) INH PRN (11:49)
[2021-10-17] MEDS ORDERED: HYDROcodone/Acetaminophen 5/325 mg Tablet PO PRN (11:50)
[2021-10-17] MEDS ORDERED: Acetaminophen 325 MG TAB PO PRN (11:51)
[2021-10-17] MEDS: Sodium Chloride 0.9% 1,000 ML IV SCH (12:02)
[2021-10-17] MEDS ORDERED: ceFAZolin 2 GM/Dextrose 50 ML 2 GM in Premix Bag 1 BAG IVPB SCH (14:00)
[2021-10-17] MEDS: CEFAZOLIN 2 GM in Sodium Chloride 0.9% 100 ML IVPB SCH ×2 (14:22→21:42)
[2021-10-17] MEDS: Gabapentin 300 MG CAP PO SCH ×2 (14:23→21:40)
[2021-10-17] MEDS ORDERED: Gabapentin 300 MG CAP PO SCH (15:00)
[2021-10-17] MEDS: Morphine 4 MG/ML VIAL SLOW IVP PRN ×2 (16:32→19:59)
[2021-10-17] MEDS: Mometasone 200 MCG/Formoterol 5 MCG 120 PUFF INHALER INH SCH (18:43)
[2021-10-17] MEDS ORDERED: Ibuprofen 800 MG TAB PO SCH (21:00)
[2021-10-17] MEDS ORDERED: Non-Formulary Item 1 EACH (Budesonide-Formoterol [Symbicort 160-4.5] 160 MG/4.5 MG Aer) INH SCH (21:00)
[2021-10-17] MEDS ORDERED: Heparin 5,000 UNITS/ML VIAL SC SCH (21:00)
[2021-10-17] MEDS ORDERED: Atorvastatin Calcium 40 MG TAB PO SCH (21:00)
[2021-10-17] MEDS ORDERED: Tamsulosin HCl 0.4 MG CAP PO SCH ×2 (21:00)
[2021-10-17] MEDS ORDERED: TURMERIC 500 MG PO SCH (21:00)
[2021-10-17] MEDS ORDERED: traZODone HCl 50 MG TAB PO SCH (21:00)
[2021-10-17] MEDS ORDERED: Non-Formulary Item 1 EACH (Turmeric Root Extract [Turmeric] 500 MG Capsule) PO SCH (21:00)
[2021-10-17] MEDS: Atorvastatin Calcium 40 MG TAB PO SCH (21:39)
[2021-10-17] MEDS: Tamsulosin HCl 0.4 MG CAP PO SCH (21:40)
[2021-10-17] MEDS: Ibuprofen 800 MG TAB PO SCH (21:40)
[2021-10-17] MEDS: traZODone HCl 50 MG TAB PO SCH (21:41)
[2021-10-18] MEDS: Morphine 4 MG/ML VIAL SLOW IVP PRN ×7 (00:56→20:57)
[2021-10-18] MEDS: Sodium Chloride 0.9% 1,000 ML IV SCH ×3 (02:57→17:44)
[2021-10-18] MEDS: CEFAZOLIN 2 GM in Sodium Chloride 0.9% 100 ML IVPB SCH ×3 (05:53→20:54)
[2021-10-18] MEDS ORDERED: Tamsulosin HCl 0.4 MG CAP PO SCH (06:00)
[2021-10-18] MEDS: Dexamethasone 4 mg/ml Vial SLOW IVP SCH ×3 (06:37→17:43)
[2021-10-18 06:56] LABS: #Eosinphils 0.1 thou/uL (0.0-0.7); #Lymphocytes 1.5 thou/uL (1.20-3.40); #Neutrophils 5.7 thou/uL (1.40-6.50); %Basophils 0.2 % (0.0-1.0); %Eosinophils 0.7 % (0.0-10.0); %Lymphocytes 18.1 % (21.0-51.0); %Monocytes 12.1 % (0.0-10.0); Hemoglobin 13.4 g/dL (14.0-18.0); Mean Corpuscular HGB CONC 34.1 g/dL (32.0-36.0); Mean Corpuscular Hemoglobin 35.2 pg (27.0-31.0); Mean Platelet Volume 6.4 fL (7.4-10.4); Platelet Count 272 thou/uL (130-400); RBC Distribution Width 12.2 % (11.5-14.5); Red Blood Cell (RBC) Count 3.79 mill/uL (4.70-6.10); White Blood Cell (WBC) Count 8.3 thou/uL (4.8-10.8)
[2021-10-18] MEDS: Mometasone 200 MCG/Formoterol 5 MCG 120 PUFF INHALER INH SCH ×2 (07:08→18:16)
[2021-10-18 07:32] LABS: Anion Gap 13 mmol/L (10-20); BUN (Urea Nitrogen) 8 mg/dL (8.4-25.7); Calc. Creatinine Clearance 77 mL/min (70-130); Calcium 8.8 mg/dL (7.8-10.44); Carbon Dioxide 25 mmol/L (23-31); Chloride 102 mmol/L (98-107); Glucose 98 mg/dL (80-115); Potassium 4.1 mmol/L (3.5-5.1); Sodium 136 mmol/L (136-145)
[2021-10-18] MEDS ORDERED: Fludrocortisone Acetate 0.1 MG TAB PO SCH (09:00)
[2021-10-18] MEDS ORDERED: Primidone 50 MG TAB PO SCH (09:00)
[2021-10-18] MEDS: Fludrocortisone Acetate 0.1 MG TAB PO SCH (09:14)
[2021-10-18] MEDS: Gabapentin 300 MG CAP PO SCH ×3 (09:14→21:01)
[2021-10-18] MEDS: Primidone 50 MG TAB PO SCH (09:16)
[2021-10-18] MEDS: Ibuprofen 800 MG TAB PO SCH (21:01)
[2021-10-18] MEDS: traZODone HCl 50 MG TAB PO SCH (21:01)
[2021-10-18] MEDS: Tamsulosin HCl 0.4 MG CAP PO SCH (21:01)
[2021-10-18] MEDS: Atorvastatin Calcium 40 MG TAB PO SCH (21:01)
[2021-10-19] MEDS: Morphine 4 MG/ML VIAL SLOW IVP PRN ×2 (00:20→14:17)
[2021-10-19] MEDS: Dexamethasone 4 mg/ml Vial SLOW IVP SCH ×4 (00:23→17:35)
[2021-10-19] MEDS ORDERED: Lorazepam 2 MG/ML VIAL SLOW IVP SCH (03:30)
[2021-10-19] MEDS: CEFAZOLIN 2 GM in Sodium Chloride 0.9% 100 ML IVPB SCH ×3 (05:26→20:55)
[2021-10-19] MEDS ORDERED: Lorazepam 2 MG/ML VIAL SLOW IVP PRN (05:57)
[2021-10-19] MEDS: Primidone 50 MG TAB PO SCH (08:16)
[2021-10-19] MEDS: Fludrocortisone Acetate 0.1 MG TAB PO SCH (08:16)
[2021-10-19] MEDS: Gabapentin 300 MG CAP PO SCH ×3 (08:16→20:39)
[2021-10-19] MEDS ORDERED: Amino Acids 4.25 %/Dextrose 5% 1,000 ML IV SCH (09:00)
[2021-10-19] MEDS ORDERED: Amino Acids 4.25 %/Dextrose 5% 2,000 ML BAG IV SCH (09:00)
[2021-10-19] MEDS: Mometasone 200 MCG/Formoterol 5 MCG 120 PUFF INHALER INH SCH ×2 (10:15→18:12)
[2021-10-19] MEDS ORDERED: chlordiazePOXIDE HCl 25 MG CAP PO SCH (15:00)
[2021-10-19] MEDS ORDERED: Thiamine 100 MG TAB PO SCH (16:00)
[2021-10-19] MEDS ORDERED: Folic Acid 1 MG TAB PO SCH (16:00)
[2021-10-19] MEDS: Acetaminophen/Codeine 30-300mg Tablet PO PRN (17:40)
[2021-10-19] MEDS: Atorvastatin Calcium 40 MG TAB PO SCH (20:39)
[2021-10-19] MEDS: Ibuprofen 800 MG TAB PO SCH (20:40)
[2021-10-19] MEDS: Tamsulosin HCl 0.4 MG CAP PO SCH (20:41)
[2021-10-19] MEDS: traZODone HCl 50 MG TAB PO SCH (20:41)
[2021-10-20] MEDS: Dexamethasone 4 mg/ml Vial SLOW IVP SCH ×2 (01:33→05:35)
[2021-10-20] MEDS: CEFAZOLIN 2 GM in Sodium Chloride 0.9% 100 ML IVPB SCH (05:33)
[2021-10-20 06:33] LABS: Anion Gap 15 mmol/L (10-20); BUN (Urea Nitrogen) 13 mg/dL (8.4-25.7); Calc. Creatinine Clearance 88 mL/min (70-130); Calcium 8.7 mg/dL (7.8-10.44); Carbon Dioxide 22 mmol/L (23-31); Chloride 104 mmol/L (98-107); Glucose 101 mg/dL (80-115); Potassium 4.4 mmol/L (3.5-5.1); Sodium 137 mmol/L (136-145)
[2021-10-20 07:33] LABS: #Lymphocytes 0.7 thou/uL (1.20-3.40); #Monocytes 0.7 thou/uL (0.11-0.59); #Neutrophils 7.4 thou/uL (1.40-6.50); %Eosinophils 0.1 % (0.0-10.0); %Lymphocytes 7.9 % (21.0-51.0); %Monocytes 7.9 % (0.0-10.0); %Neutrophils 84.1 % (42.0-75.0); Hemoglobin 12.7 g/dL (14.0-18.0); Mean Corpuscular HGB CONC 34.3 g/dL (32.0-36.0); Mean Corpuscular Hemoglobin 35.4 pg (27.0-31.0); Mean Platelet Volume 6.8 fL (7.4-10.4); Platelet Count 281 thou/uL (130-400); Red Blood Cell (RBC) Count 3.57 mill/uL (4.70-6.10); White Blood Cell (WBC) Count 8.8 thou/uL (4.8-10.8)
[2021-10-20 07:42] VITALS: TEMP 98.3
[2021-10-20] MEDS: Mometasone 200 MCG/Formoterol 5 MCG 120 PUFF INHALER INH SCH (08:19)
[2021-10-20] MEDS: Gabapentin 300 MG CAP PO SCH (08:36)
[2021-10-20] MEDS: Acetaminophen/Codeine 30-300mg Tablet PO PRN (08:37)
[2021-10-20] MEDS: Fludrocortisone Acetate 0.1 MG TAB PO SCH (08:38)
[2021-10-20] MEDS ORDERED: Folic Acid 1 MG TAB PO SCH (09:00)
[2021-10-20] MEDS ORDERED: Thiamine 100 MG TAB PO SCH (09:00)
[2021-10-20] MEDS: Primidone 50 MG TAB PO SCH (09:40)
[2021-10-20 11:30] VITALS: BP 158/87
== END 2021-10-20 14:40 | disposition home or self-care (01) | DRG 473 ==
LOC: SURG A 10-17 06:22 → SURG B 10-17 10:32 → SURG A 10-19 18:09
PROVIDERS: ADMIT Neurological Surgery; ATTEND Neurological Surgery
PROC: 0RG20A0 Fusion of 2 or more Cervical Vertebral Joints with Interbody Fusion Device, Anterior Approach, Anterior Column, Open Approach (ICD-10-PCS; principal; 2021-10-17)
PROC: 0RB30ZZ Excision of Cervical Vertebral Disc, Open Approach (ICD-10-PCS; 2021-10-17)
DX: M48.02 Spinal stenosis, cervical region (principal); M47.812 Spondylosis without myelopathy or radiculopathy, cervical region; N40.0 Benign prostatic hyperplasia without lower urinary tract symptoms; M50.321 Other cervical disc degeneration at C4-C5 level; Z20.822 Contact with and (suspected) exposure to COVID-19; M25.78 Osteophyte, vertebrae; I10 Essential (primary) hypertension; J44.9 Chronic obstructive pulmonary disease, unspecified; B18.2 Chronic viral hepatitis C; G62.9 Polyneuropathy, unspecified; G47.33 Obstructive sleep apnea (adult) (pediatric); F10.10 Alcohol abuse, uncomplicated; R13.10 Dysphagia, unspecified
CPT/HCPCS: 36415; 76000; 80048; 85025; 94664; C1713; J1100; J1170; J1644; J1885; J2060; J2270; J2405; J2704; J3010; J3490; J7050; Q0177

== ENCOUNTER 2021-10-12 10:09 | Outpatient (CLI) | payer MEDICARE ==
[2021-10-12 11:18] LABS: Hemoglobin 14.4 g/dL (13.5-17.5); Mean Corpuscular HGB CONC 34.2 g/dL (32.0-36.0); Mean Corpuscular Hemoglobin 33.6 pg (27.0-33.0); Mean Corpuscular Volume 98.1 fl (81.2-95.1); Mean Platelet Volume 9.2 fl (7.4-10.4); Platelet Count 272 10x3/uL (150-450); RBC Distribution Width 12.8 % (11.5-14.5); Red Blood Cell (RBC) Count 4.29 10x6/uL (4.32-5.72); White Blood Cell (WBC) Count 4.8 10x3/uL (3.5-10.5)
[2021-10-12 11:45] LABS: Anion Gap 17 mmol/L (10-20); BUN (Urea Nitrogen) 8 mg/dL (8.4-25.7); Calc. Creatinine Clearance 0 mL/min (70-130); Calcium 9.2 mg/dL (7.8-10.44); Carbon Dioxide 24 mmol/L (23-31); Chloride 99 mmol/L (98-107); Glucose 107 mg/dL (80-115); Potassium 4.8 mmol/L (3.5-5.1); Sodium 135 mmol/L (136-145)
[2021-10-12 20:34] LABS: SARS-CoV-2 PCR by NAA Not Detected (NotDetected)
== END 2021-10-12 10:10 | disposition home or self-care (01) ==
LOC: LABBT 10:09
PROVIDERS: ATTEND Neurological Surgery
DX: Z01.818 Encounter for other preprocedural examination (principal); M47.12 Other spondylosis with myelopathy, cervical region; Z20.822 Contact with and (suspected) exposure to COVID-19
CPT/HCPCS: 80048; 85027; 93005; U0003; U0005; 93010

== ENCOUNTER 2021-10-27 13:17 | Outpatient (CLI) | payer MEDICARE | END 2021-10-27 13:18 | disposition home or self-care (01) | LOC: RAD 13:17 | PROVIDERS: ATTEND Neurological Surgery | DX: M47.12 Other spondylosis with myelopathy, cervical region (principal); M79.89 Other specified soft tissue disorders; Z98.890 Other specified postprocedural states | CPT/HCPCS: 72040 ==

== ENCOUNTER 2022-01-17 14:33 | Outpatient (CLI) | payer MEDICARE | END 2022-01-17 14:34 | disposition home or self-care (01) | LOC: RAD 14:33 | PROVIDERS: ATTEND Neurological Surgery | DX: M48.02 Spinal stenosis, cervical region (principal); M47.812 Spondylosis without myelopathy or radiculopathy, cervical region; Z98.1 Arthrodesis status | CPT/HCPCS: 72040 ==

== ENCOUNTER 2022-05-29 12:39 | Outpatient (CLI) | payer MEDICARE | END 2022-05-29 12:40 | disposition home or self-care (01) | LOC: BICCT 12:39 | PROVIDERS: ATTEND Student in an Organized Health Care Education/Training Program | DX: Z12.2 Encounter for screening for malignant neoplasm of respiratory organs (principal); I95.1 Orthostatic hypotension; Z87.891 Personal history of nicotine dependence | CPT/HCPCS: 71271 ==

== ENCOUNTER 2023-01-03 07:59 | Outpatient (CLI) | payer MEDICARE ==
[2023-01-03] MEDS ORDERED: Iopamidol 370 76% 100 ML VIAL ONE (09:46)
== END 2023-01-03 08:00 | disposition home or self-care (01) ==
LOC: CT 07:59
PROVIDERS: ATTEND Physician Assistant Medical
DX: B18.2 Chronic viral hepatitis C (principal); K62.5 Hemorrhage of anus and rectum; R19.4 Change in bowel habit; R93.2 Abnormal findings on diagnostic imaging of liver and biliary tract; I70.0 Atherosclerosis of aorta; I70.1 Atherosclerosis of renal artery; M51.36 Other intervertebral disc degeneration, lumbar region
CPT/HCPCS: 72193; 74170; 82565; Q9967

== ENCOUNTER 2023-01-31 10:37 | Emergency (ER) | payer MEDICARE ==
[~2023-01-31 10:37] MED LIST changes: -Iopamidol 370 76% 100 ML VIAL ONE; +Magnevist 469MG/ML 20 ML VIAL ONE
[2023-01-31 13:43] LABS: #Basophils 0.1 thou/uL (0.0-0.2); #Eosinphils 0.3 thou/uL (0.0-0.7); #Monocytes 0.7 thou/uL (0.11-0.59); #Neutrophils 4.4 thou/uL (1.40-6.50); %Basophils 0.9 % (0.0-1.0); %Eosinophils 3.6 % (0.0-10.0); %Lymphocytes 22.3 % (21.0-51.0); %Monocytes 10.2 % (0.0-10.0); %Neutrophils 62.7 % (42.0-75.0); Mean Corpuscular HGB CONC 34.9 g/dL (32.0-36.0); Mean Corpuscular Hemoglobin 34.9 pg (27.0-31.0); Platelet Count 253 10x3/uL (130-400)
[2023-01-31 14:12] LABS: ALT (SGPT) 19 U/L (8-55); AST (SGOT) 27 U/L (5-34); Albumin 4.3 g/dL (3.4-4.8); Alkaline Phosphatase 107 U/L (40-110); Anion Gap 14 mmol/L (10-20); BUN (Urea Nitrogen) 7 mg/dL (8.4-25.7); Bilirubin, Total 0.4 mg/dL (0.2-1.2); Calc. Creatinine Clearance 0 mL/min (70-130); Calcium 9.5 mg/dL (7.8-10.44); Carbon Dioxide 25 mmol/L (23-31); Chloride 100 mmol/L (98-107); Estimated GFR 95; Globulin 3.1 g/dL (2.4-3.5); Glucose 97 mg/dL (80-115); Potassium 4.2 mmol/L (3.5-5.1); Protein, Total 7.4 g/dL (5.8-8.1); Sodium 135 mmol/L (136-145)
== END 2023-01-31 15:04 | disposition left against medical advice (07) ==
LOC: ERS 10:37
DX: R20.0 Anesthesia of skin (principal); R20.2 Paresthesia of skin; I10 Essential (primary) hypertension; J44.9 Chronic obstructive pulmonary disease, unspecified
CPT/HCPCS: 36415; 72158; 80053; 85025; A9579

== ENCOUNTER 2023-02-14 20:38 | Inpatient (IN) | payer MEDICARE ==
[~2023-02-14 20:38] MED LIST changes: +Iopamidol-370 76% 500 ML MDV (1 ML CHARGE) ONE; -Magnevist 469MG/ML 20 ML VIAL ONE
[2023-02-14 21:30] LABS: #Basophils 0.1 thou/uL (0.0-0.2); #Eosinphils 0.4 thou/uL (0.0-0.7); #Monocytes 0.9 thou/uL (0.11-0.59); #Neutrophils 6.7 thou/uL (1.40-6.50); %Basophils 0.5 % (0.0-1.0); %Eosinophils 3.7 % (0.0-10.0); %Lymphocytes 15.9 % (21.0-51.0); %Monocytes 9.4 % (0.0-10.0); %Neutrophils 70.1 % (42.0-75.0); Hemoglobin 12.9 g/dL (14.0-18.0); Mean Corpuscular HGB CONC 34.9 g/dL (32.0-36.0); Mean Corpuscular Hemoglobin 35.1 pg (27.0-31.0); Mean Corpuscular Volume 100.5 fl (78.0-98.0); Platelet Count 308 10x3/uL (130-400); RBC Distribution Width 13.2 % (11.5-14.5); Red Blood Cell (RBC) Count 3.68 mill/uL (4.70-6.10); White Blood Cell (WBC) Count 9.5 10x3/uL (4.8-10.8)
[2023-02-14 21:55] LABS: ALT (SGPT) 16 U/L (8-55); AST (SGOT) 19 U/L (5-34); Albumin 4.2 g/dL (3.4-4.8); Alkaline Phosphatase 102 U/L (40-110); Anion Gap 15 mmol/L (10-20); BUN (Urea Nitrogen) 6 mg/dL (8.4-25.7); Bilirubin, Total 0.4 mg/dL (0.2-1.2); Calc. Creatinine Clearance 0 mL/min (70-130); Calcium 9.3 mg/dL (7.8-10.44); Carbon Dioxide 24 mmol/L (23-31); Chloride 102 mmol/L (98-107); Estimated GFR 93; Glucose 93 mg/dL (80-115); Lipase 22 U/L (8-78); Potassium 3.6 mmol/L (3.5-5.1); Protein, Total 7.2 g/dL (5.8-8.1); Sodium 137 mmol/L (136-145)
[2023-02-15 00:34] LABS: Bacteria/HPF None Seen HPF (None Seen); Bilirubin Negative (Negative); Blood, Urine Negative (Negative); CAUTI Indications for Culture Pelvic or flank pain; Clarity Clear (Clear); Glucose, Urine (Dipstick) Normal (Negative); Ketone, Urine 10 mg/dL (Negative); Leukocyte Negative Leu/uL (Negative); Nitrite Negative (Negative); Protein, Urine (Dipstick) Negative (Neg-Trace); RBC/HPF None Seen HPF (0-3); Squamous Epithelial 0-3 HPF (0-3); Urobilinogen Normal mg/dL (Less than 2); WBC/HPF None Seen HPF (0-3)
[2023-02-15 00:36] LABS: Specific Gravity, Urine Greater than 1.060 (1.002-1.036)
[2023-02-15 00:37] LABS: Urine Culture Reflex No No
[2023-02-15] MEDS ORDERED: Ondansetron ODT 4 MG TAB PO PRN (02:11)
[2023-02-15] MEDS ORDERED: Ondansetron PF 4 MG/2 ML Vial IVP PRN (02:12)
[2023-02-15] MEDS ORDERED: Ipratropium/Albuterol 3 ML NEB NEB PRN (02:13)
[2023-02-15] MEDS ORDERED: Electrolyte Replacement Protocol 1 EACH FS SCH (02:15)
[2023-02-15] MEDS ORDERED: Ibuprofen 800 MG TAB PO PRN (02:27)
[2023-02-15] MEDS ORDERED: Albuterol 200 PUFF (6.7GM INHALER) INH PRN (02:27)
[2023-02-15] MEDS ORDERED: Ipratropium/Albuterol 3 ML NEB NEB SCH (02:30)
[2023-02-15] MEDS: Thiamine HCl 200 MG/2 ML VIAL SLOW IVP SCH (04:37)
[2023-02-15] MEDS: Lactated Ringer's 1,000 ML IV SCH ×3 (04:37→21:21)
[2023-02-15] MEDS: hydrOXYzine Pamoate 25 mg Capsule PO SCH ×3 (04:42→18:13)
[2023-02-15 06:28] LABS: PTT 29.8 sec (22.9-36.1); Prothrombin Time 13.4 sec (12.0-14.7)
[2023-02-15] MEDS: Mometasone 200 MCG/Formoterol 5 MCG 120 PUFF INHALER INH SCH ×2 (06:58→18:43)
[2023-02-15] MEDS ORDERED: GoLYTELY 4,000 ml Bottle PO SCH (08:09)
[2023-02-15] MEDS ORDERED: Sodium Chloride 0.9% 1,000 ML IV SCH (08:15)
[2023-02-15 08:54] LABS: Hematocrit 29.8 % (42.0-52.0); Hemoglobin 10.2 g/dL (14.0-18.0); Mean Corpuscular HGB CONC 34.2 g/dL (32.0-36.0); Mean Corpuscular Hemoglobin 34.6 pg (27.0-31.0); Mean Platelet Volume 9.3 fL (7.4-10.4); Platelet Count 270 10x3/uL (130-400); RBC Distribution Width 13.1 % (11.5-14.5); Red Blood Cell (RBC) Count 2.95 mill/uL (4.70-6.10); White Blood Cell (WBC) Count 8.8 10x3/uL (4.8-10.8)
[2023-02-15] MEDS ORDERED: FLU VACC QS2023(65UP)/MF59C/PF 60 MCG/0.5 ML SYRINGE IM ONE (09:00)
[2023-02-15] MEDS: Primidone 50 MG TAB PO SCH ×2 (11:45→21:09)
[2023-02-15] MEDS: Tamsulosin HCl 0.4 MG CAP PO SCH ×2 (11:45→16:03)
[2023-02-15] MEDS: Gabapentin 300 MG CAP PO SCH ×3 (11:45→21:09)
[2023-02-15] MEDS: Multivit, Therapeutic 1 TAB PO SCH (11:45)
[2023-02-15] MEDS: Fludrocortisone Acetate 0.1 MG TAB PO SCH (11:45)
[2023-02-15] MEDS: Folic Acid 1 MG TAB PO SCH (11:45)
[2023-02-15 13:01] LABS: Campy jejuni + coli by PCR Negative (Negative); STEC Shiga Toxin 1+2 Negative (Negative); Salmonella spp. by PCR Negative (Negative); Shigella spp + EIEC by PCR Negative (Negative)
[2023-02-15] MEDS ORDERED: PROPOFOL 200 MG/20 ML VIAL ONE (14:10)
[2023-02-15] MEDS ORDERED: Ondansetron HCl/PF 4 MG/2 ML Vial IVP PRN (14:23)
[2023-02-15] MEDS ORDERED: Promethazine HCl 25 MG/ML VIAL IM PRN (14:23)
[2023-02-15 16:53] LABS: Hematocrit 26.8 % (42.0-52.0); Hemoglobin 9.2 g/dL (14.0-18.0)
[2023-02-15] MEDS ORDERED: Atorvastatin Calcium 40 MG TAB PO SCH (21:00)
[2023-02-15] MEDS ORDERED: traZODone HCl 50 MG TAB PO SCH (21:00)
[2023-02-16] MEDS: Lactated Ringer's 1,000 ML IV SCH ×2 (00:26→06:44)
[2023-02-16] MEDS: hydrOXYzine Pamoate 25 mg Capsule PO SCH ×3 (00:28→11:47)
[2023-02-16] MEDS: Thiamine HCl 200 MG/2 ML VIAL SLOW IVP SCH (03:04)
[2023-02-16] MEDS: Mometasone 200 MCG/Formoterol 5 MCG 120 PUFF INHALER INH SCH (07:59)
[2023-02-16 09:33] LABS: #Eosinphils 0.2 thou/uL (0.0-0.7); #Monocytes 0.8 thou/uL (0.11-0.59); #Neutrophils 3.9 thou/uL (1.40-6.50); %Basophils 0.6 % (0.0-1.0); %Eosinophils 3.5 % (0.0-10.0); %Lymphocytes 27.1 % (21.0-51.0); %Monocytes 11.4 % (0.0-10.0); %Neutrophils 57.3 % (42.0-75.0); Hematocrit 26.2 % (42.0-52.0); Hemoglobin 9.1 g/dL (14.0-18.0); Mean Corpuscular HGB CONC 34.7 g/dL (32.0-36.0); Mean Corpuscular Hemoglobin 34.7 pg (27.0-31.0); Mean Platelet Volume 9.4 fL (7.4-10.4); Platelet Count 263 10x3/uL (130-400); RBC Distribution Width 13.1 % (11.5-14.5); Red Blood Cell (RBC) Count 2.62 mill/uL (4.70-6.10); White Blood Cell (WBC) Count 6.9 10x3/uL (4.8-10.8)
[2023-02-16] MEDS: Tamsulosin HCl 0.4 MG CAP PO SCH (09:33)
[2023-02-16] MEDS: Primidone 50 MG TAB PO SCH (09:33)
[2023-02-16] MEDS: Folic Acid 1 MG TAB PO SCH (09:33)
[2023-02-16] MEDS: Multivit, Therapeutic 1 TAB PO SCH (09:33)
[2023-02-16] MEDS: Gabapentin 300 MG CAP PO SCH ×2 (09:33→14:35)
[2023-02-16] MEDS: Fludrocortisone Acetate 0.1 MG TAB PO SCH (09:33)
[2023-02-16 10:01] LABS: ALT (SGPT) 13 U/L (8-55); AST (SGOT) 20 U/L (5-34); Albumin 3.4 g/dL (3.4-4.8); Alkaline Phosphatase 76 U/L (40-110); Anion Gap 12 mmol/L (10-20); BUN (Urea Nitrogen) Less than 4 mg/dL (8.4-25.7); Bilirubin, Total Less than 1.0 mg/dL (0.2-1.2); Calc. Creatinine Clearance 91 mL/min (70-130); Calcium 8.6 mg/dL (7.8-10.44); Carbon Dioxide 24 mmol/L (23-31); Chloride 106 mmol/L (98-107); Estimated GFR 97; Globulin 2.3 g/dL (2.4-3.5); Glucose 93 mg/dL (80-115); Potassium 3.2 mmol/L (3.5-5.1); Protein, Total 5.7 g/dL (5.8-8.1); Sodium 139 mmol/L (136-145)
[2023-02-16] MEDS ORDERED: Potassium Chloride 20 MEQ TAB PO SCH (11:00)
[2023-02-16 13:36] VITALS: BP 122/85; TEMP 98.7
[2023-02-18] MEDS ORDERED: Thiamine 100 MG TAB PO SCH (09:00)
== END 2023-02-16 16:05 | disposition home or self-care (01) | DRG 920 ==
LOC: ERS 20:38 → ERHOLD 02-15 00:33 → SURG B 02-15 02:42 → OBSVTOIN 02-16 10:53
PROVIDERS: ADMIT Family Medicine; ATTEND Family Medicine
PROC: 0W3P8ZZ Control Bleeding in Gastrointestinal Tract, Via Natural or Artificial Opening Endoscopic (ICD-10-PCS; principal; 2023-02-15)
DX: K91.840 Postprocedural hemorrhage of a digestive system organ or structure following a digestive system procedure (principal); I69.351 Hemiplegia and hemiparesis following cerebral infarction affecting right dominant side; K62.5 Hemorrhage of anus and rectum; F17.210 Nicotine dependence, cigarettes, uncomplicated; D64.9 Anemia, unspecified; G25.0 Essential tremor; D12.3 Benign neoplasm of transverse colon; K62.6 Ulcer of anus and rectum; I95.1 Orthostatic hypotension; D12.0 Benign neoplasm of cecum; J44.9 Chronic obstructive pulmonary disease, unspecified; N40.0 Benign prostatic hyperplasia without lower urinary tract symptoms; G62.9 Polyneuropathy, unspecified; Z98.890 Other specified postprocedural states; Z79.899 Other long term (current) drug therapy; Z79.51 Long term (current) use of inhaled steroids
CPT/HCPCS: 36415; 74177; 80053; 81001; 82274; 83690; 85025; 85027; 85610; 85730; 86850; 86900; 86901; 87505; 93005; 93306; 94640; 94664; 96361; 96374; 96376; G0378; J2704; J3411; J7050; J7120; J7620; Q0177; Q9967

== ENCOUNTER 2023-10-08 13:57 | Emergency (ER) | payer MEDICARE ==
[2023-10-08] MEDS ORDERED: Iopamidol-370 76% 500 ML MDV (1 ML CHARGE) ONE (15:17)
[2023-10-08 15:20] LABS: #Basophils 0.03 10x3/uL (0.0-0.2); %Basophils 0.4 % (0.0-1.0); %Eosinophils 2.7 % (0.0-10.0); %Lymphocytes 6.9 % (21.0-51.0); %Monocytes 10.2 % (0.0-10.0); %Neutrophils 79.4 % (42.0-75.0); Hematocrit 31.7 % (42.0-52.0); Hemoglobin 11.1 g/dL (14.0-18.0); Mean Corpuscular Hemoglobin 36.8 pg (27.0-31.0); Mean Platelet Volume 8.7 fL (7.4-10.4); Platelet Count 238 10x3/uL (130-400); Red Blood Cell (RBC) Count 3.02 mill/uL (4.70-6.10)
[2023-10-08 15:34] LABS: Prothrombin Time 13.4 sec (12.0-14.7)
[2023-10-08 15:35] LABS: PTT 28.9 sec (22.9-36.1)
[2023-10-08 15:37] LABS: ALT (SGPT) 14 U/L (8-55); AST (SGOT) 15 U/L (5-34); Albumin 3.4 g/dL (3.4-4.8); Alkaline Phosphatase 70 U/L (40-110); Anion Gap 16 mmol/L (10-20); BUN (Urea Nitrogen) 5 mg/dL (8.4-25.7); Bilirubin, Total 0.3 mg/dL (0.2-1.2); Calc. Creatinine Clearance 0 mL/min (70-130); Calcium 9.2 mg/dL (7.8-10.44); Carbon Dioxide 18 mmol/L (23-31); Chloride 106 mmol/L (98-107); Estimated GFR 98; Globulin 3.1 g/dL (2.4-3.5); Glucose 92 mg/dL (80-115); Potassium 3.7 mmol/L (3.5-5.1); Protein, Total 6.5 g/dL (5.8-8.1); Sodium 136 mmol/L (136-145)
[2023-10-08 18:08] LABS: Bacteria/HPF None Seen HPF (None Seen); Bilirubin Negative (Negative); Blood, Urine Negative (Negative); CAUTI Indications for Culture Alt mental st,lethar; Clarity Clear (Clear); Glucose, Urine (Dipstick) Normal (Negative); Ketone, Urine Negative (Negative); Leukocyte Negative Leu/uL (Negative); Nitrite Negative (Negative); Protein, Urine (Dipstick) Negative (Neg-Trace); RBC/HPF None Seen HPF (0-3); Specific Gravity, Urine 1.005 (1.002-1.036); Squamous Epithelial None Seen HPF (0-3); Urobilinogen Normal mg/dL (Less than 2); WBC/HPF 0-3 HPF (0-3); pH, Urine 5.5 (5.0-9.0)
[2023-10-08 18:12] LABS: Urine Culture Reflex No No
== END 2023-10-08 18:46 | disposition home or self-care (01) ==
LOC: ERS 13:57
DX: K62.5 Hemorrhage of anus and rectum (principal)
CPT/HCPCS: 36415; 74177; 80053; 81001; 82274; 85025; 85610; 85730; 86850; 86900; 86901; Q9967

== ENCOUNTER 2024-03-18 11:04 | Emergency (ER) | payer MEDICARE ==
[2024-03-18] MEDS ORDERED: Acetaminophen 500 MG TAB ONE (11:13)
== END 2024-03-18 12:32 | disposition home or self-care (01) ==
LOC: ERS 11:04
DX: M16.9 Osteoarthritis of hip, unspecified (principal); W19.XXXA Unspecified fall, initial encounter; Y93.89 Activity, other specified
CPT/HCPCS: 72170; 99283

== ENCOUNTER 2024-03-25 07:14 | Emergency (ER) | payer MEDICARE ==
[2024-03-25] MEDS ORDERED: HYDROcodone/Acetaminophen 10/325 mg Tablet ONE (09:10)
[2024-03-25 11:14] LABS: Bilirubin Negative (Negative); Blood, Urine Negative (Negative); CAUTI Indications for Culture Acute Hematuria; Clarity Clear (Clear); Glucose, Urine (Dipstick) Normal (Negative); Ketone, Urine Negative (Negative); Leukocyte 250 Leu/uL (Negative); Nitrite 2+ (Negative); Protein, Urine (Dipstick) Negative (Neg-Trace); RBC/HPF None Seen HPF (0-3); Squamous Epithelial 0-3 HPF (0-3); Urobilinogen Normal mg/dL (Less than 2); WBC/HPF 21-50 HPF (0-3)
[2024-03-25 11:15] LABS: Bacteria/HPF 1+ HPF (None Seen); Specific Gravity, Urine Greater than 1.060 (1.002-1.036)
[2024-03-25 11:16] LABS: Urine Culture Reflex Yes Yes
[2024-03-25] MEDS ORDERED: Iopamidol-370 76% 500 ML MDV (1 ML CHARGE) ONE (11:32)
[2024-03-25] MEDS ORDERED: Sulfameth/Trimethoprim DS 800-160mg TAB ONE (11:44)
== END 2024-03-25 13:00 | disposition home or self-care (01) ==
LOC: ERS 07:14
DX: N39.0 Urinary tract infection, site not specified (principal); I10 Essential (primary) hypertension; J43.9 Emphysema, unspecified; W01.198A Fall on same level from slipping, tripping and stumbling with subsequent striking against other object, initial encounter
CPT/HCPCS: 71260; 74177; 81001; 87077; 87086; 87186; Q9967

== ENCOUNTER 2024-06-06 05:56 | Day surgery (SDC) | payer MEDICARE ==
[2024-06-05 12:41] VITALS: BMI 20.5
[2024-06-06] MEDS ORDERED: Ipratropium/Albuterol 3 ML NEB ONE (07:20)
[2024-06-06] MEDS ORDERED: PROPOFOL 20 ML ONE ×2 (07:27→08:22)
[2024-06-06] MEDS ORDERED: PROPOFOL 200 MG/20 ML VIAL ONE (08:01)
[2024-06-06] MEDS ORDERED: Lidocaine 1% PF 5 ML VIAL ONE (08:01)
[2024-06-06] MEDS ORDERED: PHENYLEPHRINE-NS 100 MCG/ML 10 ML SYRINGE ONE (08:11)
[2024-06-06 09:54] LABS: #Basophils 0.03 10x3/uL (0.0-0.2); %Basophils 0.6 % (0.0-1.0); %Eosinophils 1.7 % (0.0-10.0); %Lymphocytes 13.8 % (21.0-51.0); %Monocytes 11.3 % (0.0-10.0); %Neutrophils 72.4 % (42.0-75.0); Hematocrit 31.3 % (42.0-52.0); Hemoglobin 10.7 g/dL (14.0-18.0); Mean Corpuscular HGB CONC 34.2 g/dL (32.0-36.0); Mean Corpuscular Hemoglobin 31.9 pg (27.0-31.0); Mean Corpuscular Volume 93.4 fL (78.0-98.0); Mean Platelet Volume 9.8 fL (7.4-10.4); Platelet Count 283 10x3/uL (130-400); RBC Distribution Width 14.6 % (11.5-14.5); Red Blood Cell (RBC) Count 3.35 mill/uL (4.70-6.10)
[2024-06-06 11:37] LABS: Anion Gap 15 mmol/L (10-20); BUN (Urea Nitrogen) 11 mg/dL (8.4-25.7); Calc. Creatinine Clearance 76 mL/min (70-130); Calcium 9.3 mg/dL (7.8-10.44); Carbon Dioxide 26 mmol/L (23-31); Chloride 104 mmol/L (98-107); Estimated GFR 95; Glucose 79 mg/dL (80-115); Potassium 3.4 mmol/L (3.5-5.1); Sodium 142 mmol/L (136-145)
== END 2024-06-06 10:49 | disposition home or self-care (01) ==
LOC: SDC 05:56
PROVIDERS: ATTEND Internal Medicine Gastroenterology
PROC: 0DBL8ZX Excision of Transverse Colon, Via Natural or Artificial Opening Endoscopic, Diagnostic (ICD-10-PCS; principal; 2024-06-06)
DX: Z12.11 Encounter for screening for malignant neoplasm of colon (principal); D12.3 Benign neoplasm of transverse colon; K57.31 Diverticulosis of large intestine without perforation or abscess with bleeding; I10 Essential (primary) hypertension; J44.9 Chronic obstructive pulmonary disease, unspecified; G62.9 Polyneuropathy, unspecified; F41.0 Panic disorder [episodic paroxysmal anxiety]; Z85.048 Personal history of other malignant neoplasm of rectum, rectosigmoid junction, and anus; Z86.73 Personal history of transient ischemic attack (TIA), and cerebral infarction without residual deficits; Z87.891 Personal history of nicotine dependence; Z79.1 Long term (current) use of non-steroidal anti-inflammatories (NSAID); Z79.899 Other long term (current) drug therapy
CPT/HCPCS: 45380; 80048; 82105; 85025; 85610; J2704; 36415; 88305; J7620

== ENCOUNTER 2024-12-23 09:58 | Outpatient (CLI) | payer MEDICARE ==
[2024-12-23] MEDS ORDERED: Iopamidol 370 76% 100 ML VIAL ONE (10:11)
== END 2024-12-23 09:59 | disposition home or self-care (01) ==
LOC: CT 09:58
PROVIDERS: ATTEND Internal Medicine Hematology & Oncology
DX: C19 Malignant neoplasm of rectosigmoid junction (principal); D50.0 Iron deficiency anemia secondary to blood loss (chronic)
CPT/HCPCS: 71260; 74177; Q9967